=== PATIENT | female | born 1965 | race Caucasian/White ===

== ENCOUNTER → 2019-02-17 | Outpatient (CLI) | payer OTHER ==
[~2019-02-17] MED LIST: HYDR-3164 PO; LOSA100T14 PO; MELO15TA23 PO; OMEP20TA63 PO
--- NOTE | 2019-02-17 15:11 | KCIC ---
Bilateral digital screening mammograms: Reason for examination: Routine screening. New baseline. Interpretation was made with the benefit of CAD. The skin and nipples show no abnormalities. No abnormal axillary lymph nodes are seen. The breast parenchyma shows scattered fibroglandular density. (Breast density: Category B.) There is a circumscribed nodule present at the 9:00 position of the right breast located approximately 4 cm from the nipple and measuring 1.5 cm in size. This may represent a cyst or fibroadenoma. There is also some nodular parenchymal asymmetry suggested posteriorly at the 3:00 C left breast approximately 10 cm posterior to the nipple. Recommend further evaluation with ultrasound. There are no other dominant masses, suspicious calcifications or architectural distortions. Impression: 1.5 cm nodule at the 9:00 position of the right breast anteriorly. Asymmetric nodularity posteriorly at the 3:00 C position of the left breast approximately 10 cm from the nipple seen best on CC view Recommend further evaluation with ultrasound.. BI-RADS Category 0: Incomplete. Needs additional imaging evaluation. "Our facility is accredited by the [employer]ammography [employer]." This patient's information has been entered into a reminder system for the patient to be notified with the results of her examination and a target date for the next mammogram. Electronically signed by: Lacey Dubois MD (02/17/2019 3:09 PM) [facility]
== END | disposition home or self-care (01) ==
LOC: KCIC MAMMO 14:03
PROVIDERS: ATTEND Family Medicine
DX: Z12.31 Encounter for screening mammogram for malignant neoplasm of breast (principal); N63.13 Unspecified lump in the right breast, lower outer quadrant
CPT/HCPCS: 77067

== ENCOUNTER → 2019-02-25 | Outpatient (CLI) | payer OTHER ==
--- NOTE | 2019-02-25 14:38 | KCIC ---
Bilateral breast ultrasound: Reason for examination: Nodular density in the right breast. Parenchymal asymmetry in the left breast on screening mammogram. Comparison is made to mammographic exam dated 02/17/2019. Ultrasound examination was performed bilaterally in the areas of mammographic concern. In the right breast at the 9:00 position 4 cm from the nipple, there is a 1.5 cm hypoechoic somewhat heterogeneous appearing nodule which has a slightly lobulated contour and shows internal vascular flow. Further evaluation with ultrasound biopsy is recommended. No other cystic or solid lesions are seen in the right breast. No abnormal appearing lymph nodes are seen in the right axilla. The left breast shows no discrete cystic or solid nodules and the area of asymmetry may represent superimposed tissues. No abnormal appearing lymph nodes are seen in the axilla. IMPRESSION: 1.5 cm hypoechoic nodule at the 9:00 position of the right breast 4 cm from the nipple. Recommend further evaluation with ultrasound-guided biopsy. No suspicious abnormalities in the left breast. BI-RADS Category 4: Suspicious. These findings were discussed with the patient and the patient's physician, Dr. Ku's, office staff, Jane, was notified about these findings at 2:33 PM on 02/25/2019. "Our facility is accredited by the [employer]ammography [employer]." This patient's information has been entered into a reminder system for the patient to be notified with the results of her examination and a target date for the next mammogram. Electronically signed by: Lacey Dubois MD (02/25/2019 2:36 PM) [facility]
== END | disposition home or self-care (01) ==
LOC: KCIC US 12:33
PROVIDERS: ATTEND Family Medicine
DX: N63.11 Unspecified lump in the right breast, upper outer quadrant (principal)
CPT/HCPCS: 76641

== ENCOUNTER → 2019-03-17 | Outpatient (CLI) | payer OTHER ==
--- NOTE | 2019-03-22 10:07 | PATHOLOGY ---
[facility] Accession Number: [id number] . 01 Material submitted: . breast - RIGHT BREAST TISSUE, 9:00. Modifiers: right, 9:00 . 01 Clinical history: . Right breast mass . 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 See comment. [facility]03/21/2019 . 02 Comment: Sections of the right breast mass at 9:00 needle biopsy reveal what appears to be a ductal papilloma showing florid ductal epithelial hyperplasia. There are also foci of sclerosis containing crowded small tubules within the lesion. There are also small foci within the lesion showing a proliferation of more monotonous appearing ductal epithelial cells having a cribriform architecture. A panel of immunoperoxidase stains is obtained on each of the blocks and yields the following results: . P63 (A1): Presence of myoepithelial cells around ducts and around crowded small tubules within the lesion. . Smooth muscle myosin heavy chain (A1): Presence of myoepithelial cells around ducts and around crowded small tubules within the lesion. . CK5/6 (A1): Florid ductal epithelial hyperplasia discloses a mosaic pattern of positivity with focal absence of CK5/6 positivity within small focus of atypical ductal epithelial hyperplasia. . P63 (A2): Presence of myoepithelial cells around ducts and small tubules within lesion. . Smooth muscle myosin heavy chain (A2): Presence of myoepithelial cells around ducts and small tubules within the lesion. . CK5/6 (A2): Florid ductal epithelial hyperplasia discloses mosaic pattern of CK5/6 positivity. . P63 (A3): Presence of myoepithelial cells around ducts and small tubules within the lesion. . Smooth muscle myosin heavy chain (A3): Presence of myoepithelial cells around ducts and small tubules within lesion. . CK5/6 (A3): Florid ductal epithelial hyperplasia discloses mosaic pattern of CK5/6 positivity with absence of CK5/6 positivity within small focus of atypical ductal epithelial hyperplasia. . 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 . The case is also examined by Dr. Silva, Dr. Thompson, and Dr. Maxwell, all of whom concur with the diagnosis. (JPM/db; 03/21/2019) . Special stains performed: Immunoperoxidase stains for p63, smooth muscle myosin heavy chain, and CK5/6 on A1 and p63, smooth muscle myosin heavy chain and CK5/6 on A2 and p63, smooth muscle myosin heavy chain and CK5/6 on A3. . 02 Electronically signed: . Franklin Mullins MD, Pathologist NPI- [id number] . 01 Gross description: . Received in formalin labeled "Amanda Drummond, right breast 9:00," are multiple needle cores of yellow-pearson fibrofatty tissue measuring 1.5 x 0.6 x 0.2 cm in aggregate dimensions. The tissue is submitted in its entirety in cassette A1 through A3. The cold ischemic time is 4 minutes. The total formalin fixation time is 8 hours and 15 minutes. (TSD; 03/17/2019) TOB/TOB . 02 Pathologist provided ICD-10: D24.1, N60.91, N60.21 . 02 CPT . 217563, [id number], [id number] Specimen Comment: A courtesy copy of this report has been sent to Specimen Comment: [phone], . Specimen Comment: Report sent to / DR MEJIA Performed at: 01 [facility] [address] [place] [address] [address], [place], [place] [id number] MD Rosas Baltazar MD Phone: [phone] Performed at: 02 [facility] [address] [place], [place] [id number] MD Franklin Mullins MD Phone: [phone]
--- NOTE | 2019-03-22 14:03 | RAD ---
Ultrasound-guided right breast biopsy, 02/17/2019: History: Suspicious breast nodule Previous imaging demonstrated a suspicious nodule at the 9:00 location in the right breast. Under local anesthesia, aseptic conditions and sonographic guidance three 14-gauge core samples were obtained from this nodule via a lateral approach. The materials were sent to pathology for evaluation. A biopsy marker was deposited. Hemostasis was then obtained. Two-view postprocedural digital mammograms were then performed to document position of the biopsy marker which lies along the anterior margin of the biopsied nodule. There is mild streaky increased density extending laterally from the biopsied nodule compatible with biopsy-related hemorrhage. The patient tolerated the procedure well and left the department in good condition. 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 Excisional biopsy is suggested. Note: The findings were discussed with Dr. Wise at 1:58 PM on 03/22/2019.
== END | disposition home or self-care (01) ==
LOC: US 09:39
PROVIDERS: ATTEND Family Medicine
DX: D24.1 Benign neoplasm of right breast (principal); N60.21 Fibroadenosis of right breast; I10 Essential (primary) hypertension; Z91.040 Latex allergy status; E11.9 Type 2 diabetes mellitus without complications; Z85.038 Personal history of other malignant neoplasm of large intestine; Z79.84 Long term (current) use of oral hypoglycemic drugs
CPT/HCPCS: 19083; 77065; 88305; 88341; 88342; C1713; 19081; 76942

== ENCOUNTER 2019-04-20 10:11 | Day surgery (SDC) | payer OTHER ==
[~2019-04-20] VITALS: Ht 157.5 cm; Wt 109.0 kg
[~2019-04-20 10:11] MED LIST changes: -HYDR-3164 PO; +HYDROmorphone 2 MG/ML VIAL IV PRN; +IV RINGERS,LACTATED 1000ML 1,000 ML IV SCH; +LIDOCAINE 1% PF 2 ML VIAL. ID PRN; +LIDOCAINE 2% PF 5 ML VIAL. ONE; +MORPHINE SULFATE 2 MG/ML VIAL. IV PRN; +ONDANSETRON PF 4 MG/2 ML VIAL. IV PRN; +PROCHLORPERAZINE 10 MG/2 ML VIAL. IV PRN; +PROPOFOL 20 ML IV ONE; +ceFAZolin 2GM PREMIX 2 GM/50 ML BAG IV ONE; +fentaNYL PF VIAL 100 MCG/2 ML VIAL IV PRN; +fentaNYL PF VIAL 100 MCG/2 ML VIAL ONE
[2019-04-20] MEDS ORDERED: ACETAMINOPHEN 500 MG TABLET PO ONE (10:30)
[2019-04-20] MEDS ORDERED: BUPIVACAINE-EPI 0.25%-1:200000 MPF 30 ML VIAL. ONE (10:47)
[2019-04-20] MEDS ORDERED: SEVOFLURANE 31 TO 60 MINUTES. IH ONE (11:51)
[2019-04-20] MEDS ORDERED: FAMOTIDINE 20 MG/2 ML VIAL ONE (11:51)
[2019-04-20] MEDS ORDERED: DEXAMETHASONE SOD PHOS 4 MG/ML VIAL ONE (11:51)
[2019-04-20] MEDS ORDERED: ONDANSETRON PF 4 MG/2 ML VIAL. ONE (11:54)
--- NOTE | 2019-04-20 12:40 | PDOC4 ---
Operative Note Operative Note Date: 04/20/2019 Preoperative diagnosis: Abnormal mammogram right breast Postoperative diagnosis: Same Procedure: Right breast biopsy Surgeon: Jorge Specimen: Right breast tissue Dictation: Patient is 53-year-old female had an abnormal mammogram ultrasound- guided biopsy showed abnormal findings concerning no malignancy noted sclerosing adenitis. Procedure of excisional biopsy was explained to the patient detail risk benefits were also discussed including bleeding infection alternatives to this procedure also discussed with patient is seemed to understand and gave verbal and written consent to have the procedure performed. Patient was taken to the operating room placed the supine position general anesthesia was initiated once patient was sleep and intubated her right breast and chest were prepped and draped usual sterile fashion using ChloraPrep. An area in the right outer quadrant was injected cord percent Marcaine with epinephrine incision was made with 10 blade scalpel this carried down through the subcutaneous tissue using the cautery for hemostasis the palpable mass was excised completely with electrocautery and marked with suture with the long suture being lateral short suture being superior and the double suture being the deep plane of the specimen. Wound was then irrigated and suctioned dry hemostasis deemed to be appropriate and the wound was closed in 2 layers a deep layer running 3-0 Vicryl the skin was approximate for septic and a Monocryl Mastisol Steri-Strips and island dressing were applied. Patient was awakened and asked bated operating room taken to recovery in stable condition all sponge instrument needle counts listed as correct estimate blood loss 30 mL. ANNA MARIE GOMEZ MD Apr 20, 2019 12:40
--- NOTE | 2019-04-20 12:42 | DISCH ---
DISCHARGE INSTRUCTIONS Condition on Discharge Condition on Discharge: Stable Activity After Discharge Activity Instructions for Disc: Avoid exertion Diet after Discharge Diet after Discharge: Regular Wound Incision Care Other wound/incision instructi: May shower in 24 hours Contacting the after DC Call your doctor for: If your condition worsens Follow-Up Follow up with: Dr. Gomez in 2 weeks ANNA MARIE GOMEZ MD Apr 20, 2019 12:42
[2019-04-20] MEDS ORDERED: fentaNYL PF VIAL 100 MCG/2 ML VIAL ONE ×2 (12:48→13:12)
[2019-04-20] MEDS: fentaNYL PF VIAL 100 MCG/2 ML VIAL IV PRN ×4 (12:51→13:33)
[2019-04-20] MEDS ORDERED: HYDROcodone/APAP 5/325MG 1 TAB TABLET PO ONE ×2 (13:00)
[2019-04-20] MEDS ORDERED: HYDR-3164 PO (13:02)
[2019-04-20] MEDS ORDERED: HYDROcodone/APAP 5/325MG 1 TAB TABLET ONE ×2 (14:00→14:27)
[2019-04-20 14:30] VITALS: BP 149/62
== END 2019-04-20 14:30 | disposition home or self-care (01) ==
LOC: SURG 10:11
PROVIDERS: ATTEND Surgery
DX: N60.21 Fibroadenosis of right breast (principal); M17.0 Bilateral primary osteoarthritis of knee; I10 Essential (primary) hypertension; K21.9 Gastro-esophageal reflux disease without esophagitis; G43.909 Migraine, unspecified, not intractable, without status migrainosus; Z98.890 Other specified postprocedural states; Z85.038 Personal history of other malignant neoplasm of large intestine; Z90.710 Acquired absence of both cervix and uterus; Z91.040 Latex allergy status; Z79.899 Other long term (current) drug therapy
CPT/HCPCS: 19120; 82962; A7015; J0696; J1100; J2001; J2405; J2704; J3010; J3490